=== PATIENT | female | born 1995 | race Caucasian/White ===

== ENCOUNTER 2017-10-06 11:56 | Inpatient (IN) | payer OTHER, MEDICAID ==
[~2017-10-06] VITALS: Ht 154.9 cm; Wt 54.7 kg
[~2017-10-06 11:56] MED LIST: CIPR500T4 PO
[2017-10-06 20:20] VITALS: BP 115/73; PULSE 113; RESP 17; TEMP 98.6; O2SAT 98
[2017-10-06] MEDS ORDERED: MAGNESIUM HYDROXIDE SUSP 30 ML CUP PO PRN (21:00)
[2017-10-06] MEDS ORDERED: hydrOXYzine HCL 50 MG TAB PO PRN (21:00)
[2017-10-06] MEDS ORDERED: ALUMINUM/MAGNESIUM/SIMETH 30 ML CUP PO PRN (21:00)
[2017-10-06] MEDS ORDERED: diphenhydrAMINE HCL 50 MG CAP PO PRN (21:00)
[2017-10-07 06:06] VITALS: BP 111/64; PULSE 80; RESP 16; TEMP 98.5; O2SAT 98
[2017-10-07] MEDS: NICOTINE 21 MG/24 HR PATCH T-DERMAL SCH (08:40)
[2017-10-07] MEDS: REMOVE OLD PATCH T-DERMAL SCH (09:00)
[2017-10-07 11:09] LABS: BICARBONATE 31.8 MEQ/L (21.0-32.0); BLOOD UREA NITROGEN 13 MG/DL (7-18); CALCIUM 8.9 MG/DL (8.5-10.1); CHLORIDE 105 MEQ/L (98-107); CHOLESTEROL 200 MG/DL (120-200); CHOLESTEROL/ HDL RATIO 3.71 RATIO; CREATININE 0.84 MG/DL (0.50-1.00); GLOMERULAR FILTRATION RATE 86 ML/MIN (>89); GLUCOSE,RANDOM 117 MG/DL (74-106); HDL CHOLESTEROL 53.8 MG/DL (40.0-60.0); LDL CHOLESTEROL 133 MG/DL (0-99); SODIUM (NA) 141 MEQ/L (136-145); TRIGLYCERIDES 65 MG/DL (42-150)
[2017-10-07] MEDS ORDERED: POTASSIUM CHLORIDE 10 MEQ CONTROLLED RELEASE TAB PO ONE (11:30)
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
[2017-10-07] MEDS ORDERED: LORazepam 1 MG TAB PO PRN (12:30)
[2017-10-07] MEDS ORDERED: FLUMAZENIL 0.5 MG/5 ML VIAL IV PUSH PRN (12:30)
[2017-10-07] MEDS ORDERED: LORazepam 2 MG/ML VIAL IV PUSH PRN ×4 (12:30)
[2017-10-07] MEDS ORDERED: LORazepam 2 MG TAB PO PRN (12:30)
[2017-10-07 13:04] LABS: HEMOGLOBIN A1C 5.1 % (4.3-6.0)
--- NOTE | 2017-10-07 14:58 | EKG ---
Date Performed: 10/07/2017 Time Performed: 10:13:49 PTAGE: 22 years EKG: Sinus rhythm NONSPECIFIC T-WAVE ABNORMALITY BORDERLINE ECG NO PREVIOUS TRACING DOCTOR: Cholo Herrmann Interpretating Date/Time 10/07/2017 14:57:53
[2017-10-07 15:02] LABS: AUTOMATED NEUTROPHIL # 3.3 TH/MM3 (1.8-7.7); BASOPHIL % 0.4 % (0.0-2.0); EOSINOPHIL % 0.7 % (0.0-4.0); HEMATOCRIT 40.8 % (35.0-46.0); HEMOGLOBIN 13.7 GM/DL (11.6-15.3); LYMPH % 24.7 % (9.0-44.0); LYMPHOCYTE # 1.3 TH/MM3 (1.0-4.8); MEAN CELL VOLUME 90.3 FL (80.0-100.0); MEAN CORPUSCULAR HEMOGLOBIN 30.4 PG (27.0-34.0); MEAN CORPUSCULAR HGB CONC 33.7 % (32.0-36.0); MEAN PLATELET VOLUME 7.8 FL (7.0-11.0); MONO % 10.3 % (0.0-8.0); MONOCYTE # 0.5 TH/MM3 (0-0.9); NEUT % 63.9 % (16.0-70.0); PLATELET COUNT 196 TH/MM3 (150-450); RED BLOOD COUNT 4.53 MIL/MM3 (4.00-5.30); RED CELL DISTRIBUTION WIDTH 13.3 % (11.6-17.2); WHITE BLOOD COUNT 5.2 TH/MM3 (4.0-11.0)
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
[2017-10-07 15:28] LABS: ALBUMIN 3.6 GM/DL (3.4-5.0); ALT (GPT) 21 U/L (9-42); AST (GOT) 14 U/L (16-38); BICARBONATE 28.3 MEQ/L (21.0-32.0); BLOOD UREA NITROGEN 12 MG/DL (7-18); CALCIUM 8.9 MG/DL (8.5-10.1); CHLORIDE 107 MEQ/L (98-107); CREATININE 0.97 MG/DL (0.50-1.00); GLOMERULAR FILTRATION RATE 73 ML/MIN (>89); GLUCOSE,RANDOM 92 MG/DL (74-106); MAGNESIUM 2.2 MG/DL (1.5-2.5); SODIUM (NA) 140 MEQ/L (136-145)
[2017-10-07 15:38] LABS: ALKALINE PHOSPHATASE 65 U/L (45-117); TOTAL BILIRUBIN ADULT 0.4 MG/DL (0.2-1.0); TOTAL PROTEIN 7.1 GM/DL (6.4-8.2)
[2017-10-07] MEDS ORDERED: FOLIC ACID 1 MG TAB PO ONE (15:45)
[2017-10-07] MEDS ORDERED: THIAMINE HCL 100 MG TAB PO ONE (15:45)
[2017-10-07 18:00] VITALS: BP 123/76; PULSE 101; RESP 17; TEMP 98.6; O2SAT 98
[2017-10-08 08:24] LABS: BICARBONATE 27.3 MEQ/L (21.0-32.0); CALCIUM 9.1 MG/DL (8.5-10.1); CREATININE 0.78 MG/DL (0.50-1.00)
[2017-10-08] MEDS: THIAMINE HCL 100 MG TAB PO SCH (08:37)
[2017-10-08] MEDS: FOLIC ACID 1 MG TAB PO SCH (08:38)
[2017-10-08] MEDS: REMOVE OLD PATCH T-DERMAL SCH (08:39)
[2017-10-08] MEDS: NICOTINE 21 MG/24 HR PATCH T-DERMAL SCH (08:40)
--- NOTE | 2017-10-08 11:29 | HHI.PYPN ---
Subjective Chief Complaint: "I don't really know" why she is hospitalized. Remarks Patient seen and examined with nurse. Chart reviewed. Case discussed with nursing staff. On my examination today, the patient seems to be in good spirits. She was out socializing with peers during fresh air time. She denies any suicidal or homicidal ideation. No issues with mood. She does complain of chronic issues with anxiety, particularly in social situations but also generally, and notes that she has to have her mother order food for her when they go out to eat because of this anxiety. She does note that she sometimes drinks alcohol to try to manage her anxiety. She has also experienced episodes of panic in the past. We discussed pharmacotherapeutic options for the management of anxiety, such as initiation of an SSRI. The patient seems more receptive to medications today and will consider it. No physical complaints presently. In particular no complaints of chest pain, although she does note that she has had acid reflux in the past associated chest pain. Received message from patient's mother Rosamaria Rivas. In her written message, Ms. Rivas alludes to having text messages that might be of some significance. She also notes the patient was complaining of chest and stomach pain, which patient is presently denying. With the patient's permission, I did try to reach Ms. Rivas at [phone]. I left a generic voicemail requesting a call back. Review of Systems Except as stated in HPI: all other systems reviewed are Neg Mental Status Examination Appearance: Appropriate, Well dressed/well groomed Consciousness: Alert Orientation: x4 Motor Activity: Normal gait Speech: Unremarkable Language: Adequate Fund of Knowledge: Adequate Attention and Concentration: Adequate Memory: Unremarkable Mood: Appropriate, Other (mildly dysphoric) Affect: Appropriate Thought Process & Associations: Intact, Logical, Linear Thought Content: Appropriate Hallucination Type: None Delusion Type: None Suicidal Ideation: No Suicidal Plan: No Suicidal Intention: No Homicidal Ideation: No Homicidal Plan: No Homicidal Intention: No Insight: Fair Judgment: Impulsive Mental Status Exam Remarks no signs of withdrawal noted. No complaints of withdrawal symptoms. Results Labs Test 10/07/17 14:53 10/08/17 07:28 White Blood Count 5.2 TH/MM3 Red Blood Count 4.53 MIL/MM3 Hemoglobin 13.7 GM/DL Hematocrit 40.8 % Mean Corpuscular Volume 90.3 FL Mean Corpuscular Hemoglobin 30.4 PG Mean Corpuscular Hemoglobin Concent 33.7 % Red Cell Distribution Width 13.3 % Platelet Count 196 TH/MM3 Mean Platelet Volume 7.8 FL Neutrophils (%) (Auto) 63.9 % Lymphocytes (%) (Auto) 24.7 % Monocytes (%) (Auto) 10.3 % Eosinophils (%) (Auto) 0.7 % Basophils (%) (Auto) 0.4 % Neutrophils # (Auto) 3.3 TH/MM3 Lymphocytes # (Auto) 1.3 TH/MM3 Monocytes # (Auto) 0.5 TH/MM3 Eosinophils # (Auto) 0.0 TH/MM3 Basophils # (Auto) 0.0 TH/MM3 CBC Comment DIFF FINAL Differential Comment Blood Urea Nitrogen 12 MG/DL 16 MG/DL Creatinine 0.97 MG/DL 0.78 MG/DL Random Glucose 92 MG/DL 87 MG/DL Total Protein 7.1 GM/DL Albumin 3.6 GM/DL Calcium Level 8.9 MG/DL 9.1 MG/DL Magnesium Level 2.2 MG/DL Alkaline Phosphatase 65 U/L Aspartate Amino Transf (AST/SGOT) 14 U/L Alanine Aminotransferase (ALT/SGPT) 21 U/L Total Bilirubin 0.4 MG/DL Sodium Level 140 MEQ/L 140 MEQ/L Potassium Level 4.0 MEQ/L 4.0 MEQ/L Chloride Level 107 MEQ/L 106 MEQ/L Carbon Dioxide Level 28.3 MEQ/L 27.3 MEQ/L Anion Gap 5 MEQ/L 7 MEQ/L Estimat Glomerular Filtration Rate 73 ML/MIN 94 ML/MIN Thyroid Stimulating Hormone 3rd Gen 1.970 uIU/ML Labs reviewed. No further hypokalemia. Vitals/IOs Vital Signs Date Time Temp Pulse Resp B/P (MAP) Pulse Ox O2 Delivery O2 Flow Rate FiO2 10/07/17 18:00 98.6 101 17 123/76 (92) 98 Assessment & Plan Problem List: (1) Adjustment disorder, unspecified ICD Codes: F43.20 - Adjustment disorder, unspecified (2) Polysubstance abuse ICD Codes: F19.10 - Other psychoactive substance abuse, uncomplicated Assessment & Plan Continue to monitor on the inpatient unit. Awaiting call back from patient's mother. If the patient is willing, we might consider initiating an SSRI for the management of anxiety as the patient does seem to have some underlying anxiety issues. Continue other medications and care as ordered. Patient may sign voluntary and consent for medications. Justification for Cont. Inpt. Monitoring for impairment in safety, none noted. Discharge Planning Pending outcome of observation. Request HC Surrog/Guard Advoc?: No Problem Qualifiers (1) Adjustment disorder, unspecified: Qualified Codes: F43.22 - Adjustment disorder with anxiety Rhys Jolley MD Oct 08, 2017 11:29
[2017-10-08 18:22] VITALS: BP 108/68; PULSE 120; RESP 18; TEMP 98; O2SAT 100
[2017-10-09 05:56] VITALS: BP 99/59; PULSE 80; RESP 16; TEMP 97.7; O2SAT 97
[2017-10-09] MEDS: FOLIC ACID 1 MG TAB PO SCH (08:25)
[2017-10-09] MEDS: THIAMINE HCL 100 MG TAB PO SCH (08:25)
[2017-10-09] MEDS: REMOVE OLD PATCH T-DERMAL SCH (09:00)
[2017-10-09] MEDS: NICOTINE 21 MG/24 HR PATCH T-DERMAL SCH (09:00)
[2017-10-09] MEDS ORDERED: PAXI10TA8 PO ×2 (10:49→10:50)
--- NOTE | 2017-10-09 10:49 | HHI.DS ---
Psychiatry Discharge Summary Inpatient Psychiatric care?: Yes Advance Directive: No Reason Not Provided: declined Mental Health AdvanceDirective: No Health Care Proxy: No Admission Admission Date Oct 06, 2017 at 20:15 Admission Diagnosis: (1) Adjustment disorder, unspecified ICD Code: F43.20 - Adjustment disorder, unspecified (2) Polysubstance abuse ICD Code: F19.10 - Other psychoactive substance abuse, uncomplicated Brief History Ms. Bourne is a 22-year-old female with no reported past psychiatric history and a chart history of mood disorder who presents in transfer from [facility] under a Chin act. Documentation from [facility] reviewed. Patient was brought in to [facility] out of concern for intentional overdose. It is documented that she told the friend who brought her in that nobody cared about her and that she had taken 50 pills. An empty bottle of Flexeril was apparently found at her home. Patient was medically cleared at outside hospital and transferred to [facility] for further management. Reviewing our electronic medical record, I note that the patient was admitted to the child psychiatric unit under Dr. Wood in 2013 following another overdose. Patient seen and examined with nurse. Chart reviewed. Case discussed with nursing staff. On my examination today, the patient maintains that she has no recollection of making an overdose. She says that she had taken a full bar of Xanax, which she only recently has begun abusing, because she wasn't anticipating drinking. However, she ended up going drinking at a friend's house , and she suspects it was the combination of the full bar of Xanax with the alcohol that made her blackout. The last thing she remembers was drinking at the friend's house, and the first thing she remembers after that is waking up at the hospital. She does not remember making an overdose. She denies any suicidal or homicidal ideation presently. She does admit to feeling somewhat stressed out because of joblessness and not being able to see her mother and other family members who live out of state. She does admit to feeling somewhat depressed but not suicidally depressed in her estimation. Sleep is somewhat poor, but there is a dearth of other depressive symptoms. She does not describe any hypomanic or manic symptoms presently but says that there was an episode last month where she didn't sleep for 2 days and stayed up watching television in her room. Denies audiovisual hallucinations. No delusional material. The remainder of the psychiatric ROS is negative. The patient complains of some nausea and dizziness. Past psychiatric history: The patient is not presently under the care of a psychiatrist. Her only other psychiatric admission was here at [facility]. She does report a history of 1 previous overdose but denies any history of nonsuicidal self-injurious behavior. She denies any history of violent behavior. Family history: The patient reports that her father struggles with anger issues. There is no family history of suicide. Her mother has substance use issues. Chemical dependency history: The patient reports that she consumes alcohol in a binge pattern with friends. She has blacked out in the past. She denies any history of DTs or seizures. Her longest sober time as on the order of a few weeks. She also recently has begun to abuse Xanax, within the last several weeks. Social history: The patient lives with her father, her father's girlfriend and father's girlfriend's daughter. Patient is single with no children. She dropped out of the 10th grade but subsequently got her GED. She is not presently working. She has no income. She denies any history. Denies any legal history. Her father keeps a gun but she does not know how to access it. She denies any restorationism beliefs. She denies any history of physical, verbal or sexual abuse. Tobacco Use In Past 30 Days: Cigarettes But Not Daily Alcohol Use: 2-4 Times Per Month Hospital Course Patient was admitted to a locked, inpatient psychiatric unit. A general medical consultation was obtained. Appropriate precautions were in place throughout patient's hospital stay. Patient was seen and examined on the unit by psychiatry and also visited by counselor. Patient was observed on the inpatient psychiatric unit for any impairments in safety. There was no evidence of any suicidality or homicidality well under observation on the inpatient unit. There is no evidence of any impairment in self-care. The patient remained in good behavioral control throughout her hospital stay. I did endeavor yesterday and again this morning to obtain collateral information from the patient's mother but was unable to reach mother. Patient has provided an alternative sources of collateral information, namely her father Abdifatah Bourne at [phone]. With the patient's permission, I spoke with Mr. Bourne this morning 10/09. Mr. Bourne has no concerns about the patient being an ongoing risk of harm to herself. He is comfortable with the patient being discharged home today, and patient will be staying with Mr. Bourne. I have recommended that Mr. Bourne secure the home of all potential means of harm to self or others including but not limited to guns, knives and medications including over-the- counter medications. I have educated him regarding the means to have the patient brought back to the emergency room for psychiatric evaluation including voluntary psychiatric evaluation, Chin act and ex parte. I have also educated him regarding the [place] act. On the day of discharge: Patient seen and examined with nurse. Chart reviewed. Case discussed with nursing staff. No behavioral issues noted overnight. Case discussed in treatment team. On my examination today, the patient is requesting discharge from the inpatient psychiatric unit today. She denies any suicidal or homicidal ideation, intent or plan on direct questioning and contracts for safety. I can elicit no depressive or hypomanic/manic symptoms. She is future oriented. She denies any audiovisual hallucinations. I can elicit no delusional beliefs. Her is no evidence of any impairment in reality construction. She does take more ownership of her substance use today and is willing to pursue outpatient chemical dependency treatment when I recommend it to her. She does complain of some ongoing anxiety, and we discussed the risks, benefits and alternatives of a trial of Paxil for this issue. She is agreeable to a trial of this agent, and I have prescribed a supply of Paxil on discharge today. She has no physical complaints. Suicide and violence risk assessment on day of discharge both suggest lower imminent risk from a mental illness as defined under the Chin act and the patient's level of function is adequate for outpatient care. Substance use is a chronic risk factor but not an acute or imminent risk factor in this patient, and I recommended chemical dependency evaluation and treatment on an outpatient basis for management of this issue. The patient has maximized benefit from this inpatient psychiatric hospital stay. She does not meet criteria for involuntary psychiatric hospitalization. She is requesting discharge from the inpatient psychiatric unit today and I have no basis to retain her over her objection. Patient will be discharged home today with psychiatric follow-up as arranged by counselor. Patient is also to follow-up with primary care. I counseled the patient regarding warning signs for need to return to the psychiatric emergency room as part of the general safety plan. Results Blood Pressure 99 / 59 Vital Signs Date Time Temp Pulse Resp B/P (MAP) Pulse Ox O2 Delivery O2 Flow Rate FiO2 10/09/17 05:56 97.7 80 16 99/59 (72) 97 Laboratory Tests Test 10/07/17 09:26 10/07/17 14:53 10/08/17 07:28 Random Glucose 117 MG/DL (74-106) Potassium Level 2.8 MEQ/L (3.5-5.1) Anion Gap 4 MEQ/L (5-15) Estimat Glomerular Filtration Rate 86 ML/MIN (>89) 73 ML/MIN (>89) LDL Cholesterol 133 MG/DL (0-99) Monocytes (%) (Auto) 10.3 % (0.0-8.0) Aspartate Amino Transf (AST/SGOT) 14 U/L (16-38) Laboratory Results Test 10/07/17 09:26 Cholesterol Level 200 MG/DL (120-200) HDL Cholesterol 53.8 MG/DL (40.0-60.0) Hemoglobin A1c 5.1 % (4.3-6.0) LDL Cholesterol 133 MG/DL (0-99) Triglycerides Level 65 MG/DL (42-150) Summary of Procedures None done Imaging None done Pending results at discharge: No Medications # of Antipsychotic meds at D/C: 0 Approp Antipsych med options 1 - Minimum of three failed multiple trials of monotherapy. 2 - Documented plan to taper to monotherapy due to previous use of multiple meds OR cross-taper in progress at D/C. 3 - Documentation of augmentation of Clozapine. 4 - Justification other than those listed in allowable values 1-3, document here : Discharge Discharge Date: Oct 09, 2017 Discharge Diagnosis: (1) Anxiety disorder Diagnosis: Principal (mild) ICD Code: F41.9 - Anxiety disorder, unspecified (2) Polysubstance abuse Diagnosis: Secondary (counseled to quit) ICD Code: F19.10 - Other psychoactive substance abuse, uncomplicated Pt Condition on Discharge: Stable Discharge Disposition: Discharge Home Discharge Instructions Diet Instructions: As Tolerated, No Restrictions Activities you can perform: Weight Bearing as Renetta Scheduled Appointment: as per counselor's notes New Orders: BASIC METABOLIC PROF - 1 Week New Medications: Paroxetine (Paxil) 10 Mg Tab 10 MG PO DAILY for Mental Health, #30 TAB 0 Refills Discontinued Medications: Ciprofloxacin Hcl (Cipro) 500 Mg Tab 500 MG PO BID PRN, TAB Discharge Time > 30 minutes Mental Status Examination Appearance: Appropriate, Well dressed/well groomed Consciousness: Alert Orientation: x4 Motor Activity: Normal gait, Other (no signs of withdrawal noted) Speech: Unremarkable Language: Adequate Fund of Knowledge: Adequate Attention and Concentration: Adequate Memory: Unremarkable Mood: Appropriate, Anxious (mild) Affect: Appropriate Thought Process & Associations: Intact, Logical, Goal directed, Linear Thought Content: Appropriate Hallucination Type: None Delusion Type: None Suicidal Ideation: No Suicidal Plan: No Suicidal Intention: No Homicidal Ideation: No Homicidal Plan: No Homicidal Intention: No Insight: Fair Judgment: Adequate (fair) Discharge/Advance Care Plan Health Problems: (1) Adjustment disorder, unspecified (2) Polysubstance abuse Goals to promote your health * To prevent worsening of your condition and complications * To maintain your health at the optimal level Directions to meet your goals Take your medications as prescribed Follow your dietary instruction Follow activity as directed Keep your appointments as scheduled Take your immunizations and boosters as scheduled If your symptoms worsen call your PCP, if no PCP go to Urgent Care Center or Emergency Room For 09/03 questions related to your inpatient stay or results of tests pending at discharge, please contact Dr. Rhys Jolley at Smoking is Dangerous to Your Health. Avoid second hand smoking Problem Qualifiers (1) Adjustment disorder, unspecified: Qualified Codes: F43.22 - Adjustment disorder with anxiety Rhys Jolley MD Oct 09, 2017 10:49
== END 2017-10-09 15:50 | disposition home or self-care (01) | DRG 880 ==
LOC: H260 20:15
PROVIDERS: ADMIT Psychiatry & Neurology Psychiatry; ATTEND Psychiatry & Neurology Psychiatry
DX: F41.9 Anxiety disorder, unspecified (principal); E87.6 Hypokalemia; F43.22 Adjustment disorder with anxiety; F19.10 Other psychoactive substance abuse, uncomplicated; Z91.5 Personal history of self-harm; Z87.891 Personal history of nicotine dependence
CPT/HCPCS: 80048; 80053; 80061; 83036; 83735; 84443; 85025; 93005